=== PATIENT | female | born 1945 | race Caucasian/White ===

== ENCOUNTER 2023-12-07 17:26 | Inpatient (IN) | payer MEDICARE ==
[~2023-12-07] VITALS: Ht 157.5 cm; Wt 49.9 kg
[2023-12-07] MEDS: POTASSIUM CHLORIDE 50 ML IV SCH (01:10)
[2023-12-07] MEDS ORDERED: RISP0.5T65 PO (17:57)
[2023-12-07] MEDS ORDERED: SERT-440 PO (17:57)
[2023-12-07] MEDS ORDERED: SERT20OR6 PO (17:57)
[2023-12-07] MEDS ORDERED: FLUO10TA PO (17:57)
[2023-12-07] MEDS ORDERED: OLAN5TAB3 PO (17:57)
[2023-12-07] MEDS ORDERED: FERR220S16 PO (17:57)
[2023-12-07] MEDS ORDERED: FURO20TA4 PO (17:57)
[2023-12-07] MEDS ORDERED: ASPI81TA31 PO (17:57)
[2023-12-07] MEDS ORDERED: ATOR80TA PO (17:57)
[2023-12-07] MEDS ORDERED: CLOP75TA33 PO (17:57)
[2023-12-07] MEDS ORDERED: METO50TA16 PO (17:57)
[2023-12-07] MEDS ORDERED: AMLO-212 PO (17:57)
[2023-12-07] MEDS: IV NORMAL SALINE 1000 ML BAG IV ONE (18:00)
[2023-12-07] MEDS ORDERED: LORAZEPAM 2 MG/1 ML VIAL ONE ×2 (18:02→18:57)
[2023-12-07] MEDS ORDERED: HALOPERIDOL LACTATE 5 MG/1 ML VIAL ONE (18:04)
[2023-12-07] MEDS: LORAZEPAM 2 MG/1 ML VIAL IM ONE ×2 (18:10→19:11)
[2023-12-07] MEDS: HALOPERIDOL LACTATE 5 MG/1 ML VIAL IM ONE (18:10)
[2023-12-07 18:18] LABS: CALCIUM 9.6 mg/dL (8.5-10.1); CARBON DIOXIDE 26 mmol/L (21-32); CHLORIDE 101 mmol/L (98-107); CREATININE 1.4 mg/dL (0.6-1.3); GLUCOSE 92 mg/dL (74-106); POTASSIUM 3.4 mmol/L (3.5-5.1); SODIUM SERUM 139 mmol/L (136-145); UREA NITROGEN, BLOOD 23 mg/dL (7-18)
--- NOTE | 2023-12-07 18:18 | NUR ---
PERSON TO CONTACT IS [facility] [phone]
[2023-12-07 18:20] LABS: BASOPHILS % (AUTO) 0.5 % (0.0-2.0); EOSINOPHILS # (AUTO) 0.1 K/uL (0.0-0.7); EOSINOPHILS % (AUTO) 0.8 % (0.0-7.0); HEMATOCRIT 33.4 % (31.2-41.9); HEMOGLOBIN 11.4 g/dL (10.9-14.3); LYMPHOCYTES # (AUTO) 1.6 K/uL (0.8-4.8); LYMPHOCYTES % (AUTO) 20.3 % (20.5-51.5); MEAN CORPUSCULAR HEMOGLOBIN 31.4 uug (24.7-32.8); MEAN CORPUSCULAR HGB CONC 34 g/dL (32.3-35.6); MEAN CORPUSCULAR VOLUME 92.3 fL (75.5-95.3); MONOCYTES # (AUTO) 0.7 K/uL (0.1-1.30); NEUTROPHILS # (AUTO) 5.4 K/uL (1.8-8.9); NEUTROPHILS % (AUTO) 69.4 % (38.5-71.5); PLATELET COUNT (AUTO) 272 K/uL (179-408); RED BLOOD CELL COUNT(AUTO) 3.62 MIL/uL (3.63-4.92); RED CELL DISTRIBUTION WIDTH 13.4 % (12.3-17.7); WHITE BLOOD COUNT (AUTO) 7.7 K/uL (3.8-11.8)
[2023-12-07 18:21] LABS: DIFFERENTIAL COMMENT 1
[2023-12-07 18:33] LABS: THYROID STIMULATING HORMONE 3.37 mIU/mL (0.358-3.740)
[2023-12-07] MEDS ORDERED: diphenhydrAMINE 50 MG/1 ML VIAL ONE (18:58)
[2023-12-07] MEDS ORDERED: POTASSIUM CHLORIDE 20 MEQ TAB.PRT.SR PO ONE (19:00)
[2023-12-07] MEDS: diphenhydrAMINE 50 MG/1 ML VIAL IM ONE (19:12)
--- NOTE | 2023-12-07 19:14 | NUR ---
PT IS RESTING IN BED COMFORTABLY. REPORT WAS GIVEN TO GRAPHIC DESIGN INTERN RN NAYELI.
--- NOTE | 2023-12-07 19:15 | NUR ---
REPORT RECIEVED FROM VERONA CHOU.
[2023-12-07 19:17] LABS: ALBUMIN 3.7 g/dL (3.4-5.0); BILIRUBIN,DIRECT 0.2 mg/dL (0.0-0.2); BILIRUBIN,TOTAL 0.7 mg/dL (0.2-1.0); TOTAL PROTEIN, SERUM 7.6 g/dL (6.4-8.2)
[2023-12-07] MEDS ORDERED: POTASSIUM CHLORIDE 20 MEQ TAB.PRT.SR ONE (19:27)
--- NOTE | 2023-12-07 19:30 | NUR ---
PT IS ON MONITOR, SHE'S TOO SEDATED TO TAKE HER POTASSIUM.
--- NOTE | 2023-12-07 20:30 | NUR ---
IN AND OUT CATH INSERTED/ URINE COLLECTED/ SENT TO LAB.
[2023-12-07 20:43] LABS: *BILIRUBIN,URIN NEGATIVE (NEGATIVE); *BLOOD, URINE NEGATIVE (NEGATIVE); *CLARITY,URINE CLEAR (CLEAR); *COLOR,URINE YELLOW (YELLOW); *KETONES,URINE NEGATIVE (NEGATIVE); *PROTEIN,URINE NEGATIVE (NEGATIVE); *UROBILINOGEN,URINE 0.2 E.U./dl (NORMAL); LEUKOCYTE ESTERASE ,URINE 3+ (NEGATIVE); NITRITE, URINE NEGATIVE (NEGATIVE); UGLUCOSE NEGATIVE (NEGATIVE)
--- NOTE | 2023-12-07 21:00 | NUR ---
PT IS MEDICALLY CLEARED.
--- NOTE | 2023-12-07 21:15 | NUR ---
KENZIE , CRISIS SUPERVISOR [employer], WAS CALLED. ART CRISIS SUPER[employer]OR [employer] WAS CALLED. HIS ETA IS 2300.
[2023-12-07 21:19] LABS: BACTERIA,URINE FEW /HPF (NONE SEEN); RBC,URINE 0-3 /HPF (0-3); SQUAMOUS EPITHELIAL CELL,UR FEW /HPF (NONE SEEN)
[2023-12-07] MEDS: CEFTRIAXONE 1 G in IV DEXTROSE 5% 50 ML IV ONE (23:30)
--- NOTE | 2023-12-07 23:45 | NUR ---
MRSA SWAB COLLECTED/SENT TO LAB.
[2023-12-08] MEDS ORDERED: POTASSIUM CHLORIDE 50 ML ONE (00:47)
[2023-12-08] MEDS ORDERED: CEFTRIAXONE /D5W 50ML IVPB **ER PYXIS IV ONE (00:47)
[2023-12-08] MEDS ORDERED: TEMAZEPAM 7.5 MG CAPSULE PO PRN (01:15)
[2023-12-08] MEDS ORDERED: MAG HYDROX/AL HYDROX/SIMETH 30 ML LIQUID UDC PO PRN (01:15)
[2023-12-08] MEDS ORDERED: CLONAZEPAM 0.5 MG TABLET PO PRN ×2 (01:15→05:00)
[2023-12-08] MEDS ORDERED: MAGNESIUM HYDROXIDE 30 ML LIQUID UDC PO PRN (01:15)
--- NOTE | 2023-12-08 02:45 | NUR ---
REPORT GIVEN TO CASS CHOU.
[2023-12-08 03:39] VITALS: BP 153/71; TEMP 97.9; O2SAT 93
--- NOTE | 2023-12-08 04:23 | NUR ---
GPS: Admitted to unit earlier around 030 a 78 yr.old female to be under the care of /. Pt.is on a 72 hour hold for GD. Pt.is partially oriented at this time. Noted with multiple bruises on her arms/thigh. Denies pain at this time. Personal belongings list completed. Unit rules explained. Pt's rights handbook/advisement given. Safe environment provided. Needs attended. Re-directed and re-assured prn.
[2023-12-08 07:57] VITALS: BP 137/76; TEMP 98; O2SAT 98
[2023-12-08] MEDS: SERTRALINE HCL 100 MG TABLET PO SCH (10:15)
--- NOTE | 2023-12-08 12:16 | NUR ---
RENY INITIAL DISCHARGE NOTE: Pt currently resides at home located at [place] [id number]. It is unclear at this time who is at the residence and if pt will be cleared to return. It is unclear if pt has any family. RENY will continue to work with pt and MD to ensure a safe and proper discharge plan.
--- NOTE | 2023-12-08 14:48 | NUR ---
Gps/Nursing- Remains in her room in bed , most of the day. Able to walk with P.T. assisting. Right side weakness, r/t to hx of stroke.Fed self ind. after set up . Needed verbal cueing and encouragement. denies pain, no discomfort. denies feelings of being depressed , no plan to hurt self . Adequate fluid intake, Answers to simple questions Needed assist with her hygiene, cooperative with staff providing her am care. safety reviewed .
[2023-12-08] MEDS: AMLODIPINE 5 MG TABLET PO SCH (15:10)
[2023-12-08] MEDS: CLOPIDOGREL 75 MG TABLET PO SCH (15:10)
[2023-12-08] MEDS: FUROSEMIDE 20 MG TABLET PO SCH (15:10)
[2023-12-08] MEDS: ASPIRIN 81 MG TAB.CHEW PO SCH (15:10)
--- NOTE | 2023-12-08 15:21 | NUR ---
Gps/Nursing- Verbalized needing someone to talk to, feelings alone, claimed her Caregiver Amanda wants to leave and take care of somebody else . Admits this time she's feeling depressed , about her whole situation, claimed she does not wants to get stuck in a wheel chair. Reassured patient , encouraged to continue to verbalized her feelings , safety emphasized .
[2023-12-08 16:08] VITALS: BP 138/67; TEMP 98; O2SAT 96
[2023-12-08] MEDS ORDERED: CEphaleXIN 500 MG CAPSULE PO SCH (17:00)
[2023-12-08] MEDS: METOPROLOL TARTRATE 50 MG TABLET PO SCH (17:20)
[2023-12-08 20:00] VITALS: BP 140/60; TEMP 98.8; O2SAT 95
[2023-12-08] MEDS: OLANZAPINE 5 MG TABLET PO SCH (20:30)
[2023-12-08] MEDS: ATORVASTATIN 40 MG TABLET PO SCH (20:30)
[2023-12-08] MEDS: TEMAZEPAM 7.5 MG CAPSULE PO SCH (20:31)
[2023-12-08] MEDS: CEphaleXIN 250 MG CAPSULE PO SCH (20:31)
[2023-12-09 08:13] VITALS: BP 158/89; TEMP 98.7; O2SAT 98
[2023-12-09] MEDS: FERROUS SULFATE 325 MG TABEC PO SCH (09:07)
[2023-12-09] MEDS: ACETAMINOPHEN 325 MG TABLET PO PRN (14:52)
[2023-12-09 16:15] VITALS: BP 155/53; TEMP 98.3; O2SAT 98
--- NOTE | 2023-12-09 16:27 | NUR ---
Gps/Nursing- OOB to her marlon-chair , taken to the patio with the group, stayed oob in the activity room . Interacting with the staff, making her simple needs known . Complained of lower back pain, tylenol 650 mg po with adequate relief. Safety reviewed . Verbalized still feeling of being depressed , no plan to hurt self
[2023-12-09 20:00] VITALS: BP 131/70; TEMP 97.7; O2SAT 100
--- NOTE | 2023-12-10 06:55 | NUR ---
AAOx2-3 No behavioral issues noted. No agitation or restlessness noted. Medicated with Tylenol @0520. Had 9.0 hours of sleep. No acute distress noted. Will monitor patient.
[2023-12-10 08:01] VITALS: BP 168/71; TEMP 97.9; O2SAT 98
--- NOTE | 2023-12-10 11:28 | NUR ---
Gps/Nursing- Had kidney ultrasound that was done at bedside this am. Results was placed in the chart. Patient stays in bed this am. Complaint of gen . discomfort , tylenol 650 mg po was given with mins. result. Making her simple needs known .Safety reviewed, less depressed per patient . Encouraged continued verbalizations of her feelings
[2023-12-10] MEDS: CLONAZEPAM 0.5 MG TABLET PO PRN (14:18)
[2023-12-10 17:03] VITALS: BP 158/80; TEMP 98.1; O2SAT 97
--- NOTE | 2023-12-10 17:39 | NUR ---
Gps/Nursing - Anxious this pm . irritable had been in and out of bed to TV room to bed , taken to the patio wants to enjoy the sun , but wants to be put to bed after 10 minutes , and noted yelling at her roommate to leave her alone , discouraged from yelling at her roommate, claimed she bother her too much. Patient was assisted back to activity room . Patches of bruising to her extremities still noted .
[2023-12-10] MEDS: MELATONIN 3 MG TABLET PO SCH (20:19)
[2023-12-10 20:58] VITALS: BP 95/55; TEMP 98; O2SAT 96
[2023-12-10 21:16] VITALS: BP 119/53; O2SAT 98
--- NOTE | 2023-12-11 06:41 | NUR ---
GPS: Pt.slept for 5.15 last night. Assisted to the toilet prn. Fall precautions observed. No episodes of increased irritability noted. Med.compliant. Re-assured and re-directed prn.
[2023-12-11 07:59] LABS: BASOPHILS % (AUTO) 0.7 % (0.0-2.0); EOSINOPHILS # (AUTO) 0.2 K/uL (0.0-0.7); EOSINOPHILS % (AUTO) 3.4 % (0.0-7.0); HEMATOCRIT 33.7 % (31.2-41.9); HEMOGLOBIN 11.7 g/dL (10.9-14.3); LYMPHOCYTES # (AUTO) 2.1 K/uL (0.8-4.8); LYMPHOCYTES % (AUTO) 29.8 % (20.5-51.5); MEAN CORPUSCULAR HEMOGLOBIN 31.9 uug (24.7-32.8); MEAN CORPUSCULAR HGB CONC 35 g/dL (32.3-35.6); MONOCYTES # (AUTO) 0.7 K/uL (0.1-1.30); MONOCYTES % (AUTO) 10.4 % (0.0-11.0); NEUTROPHILS # (AUTO) 3.9 K/uL (1.8-8.9); NEUTROPHILS % (AUTO) 55.7 % (38.5-71.5); PLATELET COUNT (AUTO) 311 K/uL (179-408); RED BLOOD CELL COUNT(AUTO) 3.66 MIL/uL (3.63-4.92); RED CELL DISTRIBUTION WIDTH 13.5 % (12.3-17.7)
[2023-12-11 08:05] VITALS: BP 118/70; TEMP 98.2; O2SAT 98
[2023-12-11 08:06] LABS: DIFFERENTIAL COMMENT 1
[2023-12-11 08:12] LABS: ALANINE AMINOTRANSFERASE 23 U/L (14-59); ALBUMIN 3.4 g/dL (3.4-5.0); ALKALINE PHOSPHATASE 141 U/L (50-136); ASPARTATE AMINOTRANSFERASE 30 U/L (15-37); BILIRUBIN,TOTAL 0.6 mg/dL (0.2-1.0); CALCIUM 9.4 mg/dL (8.5-10.1); CARBON DIOXIDE 30 mmol/L (21-32); CHLORIDE 104 mmol/L (98-107); CREATININE 1.4 mg/dL (0.6-1.3); GLUCOSE 95 mg/dL (74-106); MAGNESIUM 2.2 mg/dL (1.8-2.4); PHOSPHOROUS 4.2 mg/dL (2.5-4.9); POTASSIUM 3.6 mmol/L (3.5-5.1); SODIUM SERUM 141 mmol/L (136-145); TOTAL PROTEIN, SERUM 7.3 g/dL (6.4-8.2); UREA NITROGEN, BLOOD 21 mg/dL (7-18)
--- NOTE | 2023-12-11 14:15 | NUR ---
GPS: Nursing Notes: Thought Disorder: Patient is awake and responding to her name, resistant with nursing care at times, gets easily irritable when redirected, loud and pressured speech, believes that she does not belong here, unable to formulate a viable plan for self care, needs assistance with ADL's, needs prompting to participate in therapeutic groups, on fall precautions, continue to monitor for safety, continue with treatment plan.
[2023-12-11 16:33] VITALS: BP 128/56; TEMP 98; O2SAT 98
--- NOTE | 2023-12-11 17:51 | NUR ---
GPS: Nursing Notes: Reassessment of Klonopin: Patient became calmed and participated in therapeutic groups. Klonopin PO PRN was effective, R=18, continue to monitor for safety, continue with treatment plan.
[2023-12-11 20:00] VITALS: BP 93/44; TEMP 98.5; O2SAT 95
--- NOTE | 2023-12-12 04:31 | NUR ---
This pt mainly stayed in her bedroom for the entire shift as she normally does. She's still confused and delusional at times, making statements that don't make sense. She's easily redirectable and compliant with care, this shift. Takes meds whole, compliant with med-pass and overall care. Safety measures in place.
[2023-12-12 08:08] VITALS: BP 178/77; TEMP 98; O2SAT 99
--- NOTE | 2023-12-12 11:02 | NUR ---
PROBABLE CAUSE HEARIND hold upheld for GD. Patient did not attend the hearing .
--- NOTE | 2023-12-12 12:46 | NUR ---
GPS: Nursing Notes: Thought Disorder: Patient is awake and responding to her name, needs assistance with ADL's, on fall precautions, continue to monitor for safety, disoriented to time, needs prompting to participate in therapeutic groups, brighter affect, compliant with her medications, no aggressive behavior noted, unable to formulate a viable plan for self care, unkempt appearance, continue with treatment plan.
[2023-12-12 15:31] VITALS: BP 116/61; TEMP 98.8; O2SAT 99
[2023-12-12 20:00] VITALS: BP 109/51; TEMP 98.5; O2SAT 96
--- NOTE | 2023-12-12 23:31 | NUR ---
Pt requested medication for pain. Gave Tylenol 650mg po prn for mild pain mgt. Pt had also been behaving a little restless. Gave Klonopin 0.5mg po prn. Safe environment implemented.
--- NOTE | 2023-12-13 05:54 | NUR ---
Pt still can make delusional statements but at times can be AOx3. She's verbally intrusive at times when having a conversation with another person nearby her. Still a fall risk d/t an unsteady gait and balance. Needs assistance with ambulating and bedside care. Taking medications on time w/o any issues. Safe environment provided.
[2023-12-13 09:10] VITALS: BP 186/62; TEMP 98; O2SAT 98
--- NOTE | 2023-12-13 13:37 | NUR ---
RENY SNF REFERRAL: SW faxed patient's referral packet including: History and Physical, Consultation, Progress Notes, Medication List and Labs to the following facilities for review and possible jail placement: [place] [address] as pt is from [facility] and agreeable with this plan. RENY spoke with jurgen at the facility.
[2023-12-13 15:28] VITALS: BP 150/46; TEMP 97.8; O2SAT 98
--- NOTE | 2023-12-13 18:14 | NUR ---
GPS: Pt A0x2, denies SI/HI or A/VH. Pt present with broad affect but at times irritable. complaints of lower back pain and given tylenol prn x2 but reports pain continues. Provider notified but unable to initiate Ibuprofen due to renal lab values. Provider to evaluate for other options for pain management. Pt compliant with medication and nursing care. No currently viable plan for self care. Will continue to monitor.
[2023-12-13 20:00] VITALS: BP 128/61; TEMP 97.5; O2SAT 99
--- NOTE | 2023-12-13 21:04 | NUR ---
GPS: Resting comfortably at this time without any complaints of pain/discomfort verbalized. All due meds.given as ordered. Calm and cooperative with care so far. Assisted to the toilet earlier. Re-directed and re-assured prn. Needs attended. Safe environment provided.
[2023-12-14 08:05] VITALS: BP 158/79; TEMP 98; O2SAT 98
--- NOTE | 2023-12-14 10:48 | NUR ---
WOUND CARE CONSULT: PT PRESENTS WITH DRY ESCHAR TO RT ELBOW AREA WITH SLIGHT REDNESS. DR LANE CALLED FOR SURGICAL CONSULT. DISCUSSED SKIN PROTECTION WITH NURSING STAFF. Carey Pantoja IN AGREEMENT WITH PLAN OF CARE.
[2023-12-14 15:10] VITALS: BP 170/65; TEMP 98; O2SAT 99
[2023-12-14 19:59] VITALS: BP 129/53; TEMP 98.2; O2SAT 98
[2023-12-15 08:01] VITALS: BP 168/68; TEMP 98; O2SAT 98
[2023-12-15 15:00] VITALS: BP_SYST 126; BP_SYST 147; BP_DIAS 51; BP_DIAS 74; TEMP 98; TEMP 98.1; O2SAT 100
--- NOTE | 2023-12-15 15:02 | NUR ---
Gps/Nursing- Right elbow eschar ,dark color , tenderness per pt. 2x2 boarder dressing intact Ambulates around, uses FWW .Self care set up ,meds compliant .
[2023-12-15 20:24] VITALS: BP 147/51; TEMP 98.1; O2SAT 100
--- NOTE | 2023-12-16 06:35 | NUR ---
Pt can make delusional statements at times but for the most part is overall compliant with her POC. She's AOx3 and is able to self ambulate to and from the restroom.
[2023-12-16] MEDS: PANTOPRAZOLE SODIUM 40 MG TABLET.DR PO SCH (06:49)
[2023-12-16 08:22] VITALS: BP 129/60; TEMP 97.7; O2SAT 98
--- NOTE | 2023-12-16 10:00 | NUR ---
TYLENOL REASSESSMENT: Pt requested Tylenol PO PRN for right shoulder pain of 9/10 on pain scale. Pt tolerated PRN well and per pt it was effective and vital signs are stable . Continue to monitor , continue with treatment plan.
--- NOTE | 2023-12-16 16:19 | NUR ---
Receive pt in dinning room awake and responding to her name. Pt is pleasant and cooperative up on approach Pt can be confuse and anxious at times but redirectable. Pt is compliant with medications and with nursing care. Pt stays in dinging room interacting with other patients. No aggressive behavior noted at this time. Pt denies SI and verbally contracted for safety. Safety measures in place, ongoing monitoring, ongoing treatment plan.
[2023-12-16 21:36] VITALS: BP 150/63; TEMP 98; O2SAT 99
[2023-12-16] MEDS: TEMAZEPAM 7.5 MG CAPSULE PO PRN (22:20)
--- NOTE | 2023-12-17 06:58 | NUR ---
Pt has been overall pleasant and compliant with POC. Her gait and balance has improved and no longer a fall risk as when first admitted.
[2023-12-17 08:44] VITALS: BP 159/66; TEMP 98.1; O2SAT 98
--- NOTE | 2023-12-17 15:52 | NUR ---
GPS: Nursing Notes: Thought Disorder: Patient is awake and responding to her name, cooperative with nursing care, compliant with her medications, needs prompting to participate in therapeutic groups, argumentative at times, gets easily anxious when redirected, unable to formulate a viable plan for self care, interactive with peers, on fall precautions, ambulatory with fww, depressed mood and anxious affect, unkempt appearance, no aggressive behavior noted, verbally opal for safety, continue with treatment plan.
[2023-12-17 16:39] VITALS: BP 95/59; TEMP 98; O2SAT 98
--- NOTE | 2023-12-17 17:25 | NUR ---
GPS: Nursing Notes: Reassessment of Tylenol: Patient denies any headaches. 0/10. Tylenol PO PRN was effective, continue to monitor for safety, continue with treatment plan.
[2023-12-17 20:11] VITALS: BP 129/60; TEMP 98.1; O2SAT 100
--- NOTE | 2023-12-17 21:30 | NUR ---
Received patient in the day room watching TV. She is noted A/O x 2. She is easily irritable. She is hostile and argumentative with other residents. She is somewhat redirectable. Patient has impaired insight as to the reason for her admission to [facility]. she denied SI/HI/VH/AH. she is complaint with all her night time meds. she is reassured for her safety. safety and fall precautions are in place. Her V/S are stable. She was given PO fluids and snacks. will continue to monitor.
[2023-12-18] VITALS (7 sets, daily range): BP systolic 137–185; BP diastolic 53–85; TEMP 97.6–98; O2SAT 96–99
--- NOTE | 2023-12-18 08:51 | NUR ---
GPS: Nursing Notes: Reassessment of Klonopin: Patient became calmed and stopped pacing. Klonopin PO PRN was effective, R=18, continue to monitor for safety, continue with treatment plan.
--- NOTE | 2023-12-18 10:49 | NUR ---
GPS: Nursing Notes: Thought Disorder: Patient is awake and responding to her name, gets easily irritable when redirected, argumentative with peers at times, needs prompting to participate in therapeutic groups, unable to formulate a viable plan for self care, loud and pressured speech at times, redirected and reoriented during shift, on fall precautions, ambulatory with fww, depressed mood and angry affect, unkempt appearance, verbally opal for safety, denies SI, continue to monitor for safety, continue with treatment plan.
--- NOTE | 2023-12-18 11:44 | NUR ---
GPS: Nursing Notes: Reassessment of Tylenol: Patient denies pain. 0/10. Tylenol PO PRN was effective, continue to monitor V/S, continue to monitor for safety, continue with treatment plan.
--- NOTE | 2023-12-18 17:12 | NUR ---
GPS: Nursing Notes: Reassessment of Klonopin: Patient became calmed and cooperative with nursing care. Klonopin PO PRN was effective, R18, continue to monitor for safety, continue with treatment plan.
--- NOTE | 2023-12-18 18:26 | NUR ---
GPS: Nursing Notes: Fall: At 18:20, walking on the hallway with fww, patient fell by loosing her balance and sliding down the wall to the floor and hitting her right elbow. V/S: 146/65, 97.9, 70, 18, 99%, 0/10. Rosey Longo NP informed of incident and ordered: X-ray of right elbow. Patient continue to ambulate with fww without any discomfort. Continue to respond to verbal commands, continue to monitor for safety, continue with treatment plan.
[2023-12-18] MEDS: OLANZAPINE 5 MG TABLET PO SCH (21:10)
--- NOTE | 2023-12-18 21:51 | NUR ---
Received patient in the day room watching TV with other peers. She is noted A/O x 2. she is calm and pleasant upon approached. No changes in LOC. Patient is able to comply with all her night time meds, diet and plan of care. Her V/S are stable. B/P elevated at SBP 164mmHg. It was rechecked after patient took all her night time meds and it read 150/66mmHg and pulse 60. patient in no apparent distress. All her needs are met. She is reassured for her safety. safety and fall precautions in place. Bed Alarm on, bed is locked and low position with two side rail up. room well-lit and clutter free and frequent rounding. PO fluids and snacks given. will continue to monitor.
[2023-12-19 08:35] VITALS: BP 143/69; TEMP 98; O2SAT 98
[2023-12-19] MEDS: MEDIHONEY= THERAHONEY 1.5 OZ TUBE TOP SCH (13:53)
--- NOTE | 2023-12-19 14:01 | NUR ---
GPS: Nursing Notes: Thought Disorder: Patient is awake and responding to her name, cooperative with nursing care, argumentative at times with male peers, compliant with her medications, needs prompting to participate in therapeutic groups, unable to formulate a viable plan for self care, on fall precautions, ambulatory with fww, gets easily irritable when redirected at times, continue to monitor for safety, continue with treatment plan.
--- NOTE | 2023-12-19 14:45 | NUR ---
GPS: Nursing Notes: Reassessment of Tylenol: Patient denies any pain or discomfort. 0/10. Tylenol PO PRN was effective, continue to monitor for safety, continue with treatment plan.
--- NOTE | 2023-12-19 14:45 | NUR ---
GPS: n Addendum: 12/19/23 at 1642 by FLAQUITO WALKER LVN Staff error - Disregard this note.
[2023-12-19 15:05] VITALS: BP 137/53; TEMP 98.2; O2SAT 98
[2023-12-19 19:59] VITALS: BP 119/53; TEMP 98.1; O2SAT 98
[2023-12-20 07:45] VITALS: BP 115/78; TEMP 98; O2SAT 98
--- NOTE | 2023-12-20 14:20 | NUR ---
Pt requested Tylenol PO PRN for headache and back pain of 9/10 on pain scale. Pt tolerated PRN well . Continue to monitor , continue with treatment plan.
--- NOTE | 2023-12-20 15:43 | NUR ---
Receive pt in in room room awake and responding to her name. Pt is pleasant and cooperative up on approach . Pt is confuse and anxious at times but redirectable. Pt is compliant with medications and with nursing care.Pt does not have a viable plan for self care. Pt stays in dinging room interacting with other patients. No aggressive behavior noted at this time. Pt denies SI and verbally contracted for safety. Safety measures in place, ongoing monitoring, ongoing treatment plan.
[2023-12-20 16:03] VITALS: BP 140/66; TEMP 98; O2SAT 100
[2023-12-20 20:00] VITALS: BP 134/63; TEMP 98.4; O2SAT 99
[2023-12-21 07:55] VITALS: BP 134/62; TEMP 98.2; O2SAT 99
[2023-12-21 09:13] VITALS: BP 134/62
--- NOTE | 2023-12-21 09:29 | NUR ---
DECORATOR STORE DISCHARGE UPDATE: RENY spoke with Ally in admissions at [facility] [phone] located at [address] [place] [address] in regard to pt's admission to their facility. Ally asked for updated clinicals, RENY faxed the pt's clinicals to F: [phone].
--- NOTE | 2023-12-21 12:30 | NUR ---
Gps/Nursing- Called [facility], report called to Nurse Salgado . Facility to provide transportation. All belongings returned back to patient, was well informed aware of discharge plan this pm. Right elbow wound with granulation noted wound care done as ordered. Adequate relief from lower back pain after tylenol 650 mg po was administered. .
--- NOTE | 2023-12-21 13:01 | NUR ---
COMPUTER PROGRAMMER CHIEF DISCHARGE NOTE: Pt will discharge to [facility] [phone] located at [address] [place] [address], PH: [phone] via facility transport at 2pm on 12/21/23. Pt's admitting doctor is Dr. Franz and psychiatrist Dr. Keaton Broderick.
--- NOTE | 2023-12-21 14:00 | NUR ---
Gps/Nursing- Discharged to [facility]. via Facility Transportation , patient was in good spirit with no complaints noted
== END 2023-12-21 14:00 | DRG 885 ==
LOC: ER 17:28 → GPS 23:30
PROVIDERS: ADMIT Psychiatry & Neurology Psychiatry; ATTEND Nurse Practitioner Acute Care
DX: F32.3 Major depressive disorder, single episode, severe with psychotic features (principal); N17.0 Acute kidney failure with tubular necrosis; N18.9 Chronic kidney disease, unspecified; E44.1 Mild protein-calorie malnutrition; Z68.1 Body mass index [BMI] 19.9 or less, adult; E78.5 Hyperlipidemia, unspecified; I12.9 Hypertensive chronic kidney disease with stage 1 through stage 4 chronic kidney disease, or unspecified chronic kidney disease; M89.8X9 Other specified disorders of bone, unspecified site; Z79.02 Long term (current) use of antithrombotics/antiplatelets; Z79.82 Long term (current) use of aspirin; I25.10 Atherosclerotic heart disease of native coronary artery without angina pectoris; F41.9 Anxiety disorder, unspecified; E87.6 Hypokalemia; T50.1X5A Adverse effect of loop [high-ceiling] diuretics, initial encounter; Y92.009 Unspecified place in unspecified non-institutional (private) residence as the place of occurrence of the external cause; Z91.81 History of falling; Z79.899 Other long term (current) drug therapy
CPT/HCPCS: 36415; 71045; 73080; 76770; 83605; 83735; 84100; 84443; 84484; 85025; 87040; 93005; J0696; J1200; J1630; J2060; J3480; J7040